=== PATIENT | male | born 1965 | race African-American/Black ===

== ENCOUNTER 2017-09-28 08:22 | Emergency (ER) | payer SELFPAY ==
[2017-09-28 08:51] LABS: #Basophils 0.1 thou/uL (0.0-0.2); #Lymphocytes 1.2 thou/uL (1.20-3.40); #Monocytes 0.7 thou/uL (0.11-0.59); #Neutrophils 5.2 thou/uL (1.40-6.50); %Basophils 1.1 % (0.0-1.0); %Eosinophils 0.4 % (0.0-10.0); %Lymphocytes 16.8 % (21.0-51.0); %Monocytes 9.3 % (0.0-10.0); %Neutrophils 72.5 % (42.0-75.0); Hemoglobin 16.6 g/dL (14.0-18.0); Mean Corpuscular HGB CONC 32.2 g/dL (32.0-36.0); Mean Corpuscular Hemoglobin 26.6 pg (27.0-31.0); Mean Corpuscular Volume 82.6 fl (80.0-94.0); Mean Platelet Volume 8.2 fL (7.4-10.4); Platelet Count 287 thou/uL (130-400); Red Blood Cell (RBC) Count 6.24 mill/uL (4.70-6.10); White Blood Cell (WBC) Count 7.2 thou/uL (4.8-10.8)
[2017-09-28 09:25] LABS: ALT (SGPT) 19 U/L (8-55); AST (SGOT) 22 U/L (5-34); Alkaline Phosphatase 131 U/L (40-150); Anion Gap 12 mmol/L (10-20); BUN (Urea Nitrogen) 14 mg/dL (8.9-20.6); Bilirubin, Total 0.7 mg/dL (0.2-1.2); CK (CPK) 79 U/L (30-200); Calc. Creatinine Clearance 0 mL/min (70-130); Calcium 9.1 mg/dL (7.8-10.44); Carbon Dioxide 23 mmol/L (22-29); Chloride 103 mmol/L (98-107); Estimated GFR-MDRD 58; Globulin 3.2 g/dL (2.4-3.5); Glucose 112 mg/dL (70-105); Potassium 3.9 mmol/L (3.5-5.1); Protein, Total 7.2 g/dL (6.0-8.3); Sodium 134 mmol/L (136-145)
[2017-09-28 09:34] LABS: CKMB 0.5 ng/mL (0-6.6); Troponin I 0.023 ng/mL (< 0.028)
--- NOTE | 2017-09-28 09:36 | RAD ---
PORTABLE AP CHEST: Date: 09/28/17 HISTORY: Chest pain. Cough for 3 days. Back pain. COMPARISON: 01/01/15. FINDINGS: Single lead left subclavian AICD device remains in place. Cardiac silhouette and pulmonary vasculatur e are within normal limits. The lungs are clear. There has been no interval change from the prior exa m. IMPRESSION: No acute cardiopulmonary process. POS: [facility]
[2017-09-28] MEDS ORDERED: Ketorolac Tromethamine 30 MG/ML VIAL ONE (09:46)
[2017-09-28] MEDS ORDERED: cloNIDine 0.1 MG TAB ONE (11:06)
--- NOTE | 2017-11-06 22:13 | EKG ---
Test Reason : Blood Pressure : / mmHG Vent. Rate : 086 BPM Atrial Rate : 086 BPM P-R Int : 152 ms QRS Dur : 088 ms QT Int : 364 ms P-R-T Axes : 073 -29 -42 degrees QTc Int : 435 ms Normal sinus rhythm Possible Left atrial enlargement Abnormal ECG Confirmed by STEPHANIE GASPAR D.O. ([id number]), medical transcription editor TATIANA WARNER ([id number]) on 11/06/2017 10:13:09 PM Referred By: Confirmed By:STEPHANIE GASPAR D.O.
== END 2017-09-28 11:09 | disposition home or self-care (01) ==
LOC: ERS 08:22
DX: R07.89 Other chest pain (principal); M54.5 Low back pain; G89.29 Other chronic pain; F17.210 Nicotine dependence, cigarettes, uncomplicated; F31.9 Bipolar disorder, unspecified; I25.10 Atherosclerotic heart disease of native coronary artery without angina pectoris; I11.0 Hypertensive heart disease with heart failure; I50.9 Heart failure, unspecified; Z79.82 Long term (current) use of aspirin; Z76.0 Encounter for issue of repeat prescription; Z79.899 Other long term (current) drug therapy; Z79.891 Long term (current) use of opiate analgesic
CPT/HCPCS: 36415; 71045; 80053; 82553; 83880; 84484; 85025; 93005; 96372; J1885

== ENCOUNTER 2024-03-24 13:26 | Observation (INO) | payer OTHER ==
[2024-03-24] MEDS ORDERED: Ondansetron ODT 4 MG TAB PO PRN ×2 (15:37)
[2024-03-24] MEDS ORDERED: Acetaminophen 325 MG TAB PO PRN (15:37)
[2024-03-24] MEDS ORDERED: Lorazepam 1 MG TAB PO PRN (15:37)
[2024-03-24] MEDS ORDERED: Lorazepam 2 MG/ML VIAL IM PRN (15:37)
[2024-03-24] MEDS ORDERED: Nitroglycerin 0.4 MG TAB (25 Tab Bottle) SL PRN (15:43)
[2024-03-24] MEDS ORDERED: Electrolyte Replacement Protocol FS SCH (15:45)
[2024-03-24] MEDS ORDERED: Lorazepam 1 MG TAB PO SCH (15:45)
[2024-03-24 16:31] LABS: Troponin I 0.159 ng/mL (< 0.028)
[2024-03-24] MEDS: Folic Acid 1 MG TAB PO SCH (18:44)
[2024-03-24] MEDS: Multivit, Therapeutic 1 TAB PO SCH (18:45)
[2024-03-24] MEDS: Thiamine HCl 200 MG/2 ML VIAL SLOW IVP SCH (18:45)
[2024-03-24] MEDS: Lactated Ringer's 1,000 ML IV SCH (20:21)
[2024-03-24 20:58] LABS: Troponin I 0.155 ng/mL (< 0.028)
[2024-03-25 04:00] LABS: #Basophils 0.04 10x3/uL (0.0-0.2); %Basophils 0.5 % (0.0-1.0); %Eosinophils 1.3 % (0.0-10.0); %Lymphocytes 30.1 % (21.0-51.0); %Monocytes 9.9 % (0.0-10.0); Hematocrit 39.6 % (42.0-52.0); Hemoglobin 12.7 g/dL (14.0-18.0); Mean Corpuscular HGB CONC 32.1 g/dL (32.0-36.0); Mean Corpuscular Hemoglobin 25.3 pg (27.0-31.0); Platelet Count 351 10x3/uL (130-400); RBC Distribution Width 17.2 % (11.5-14.5); Red Blood Cell (RBC) Count 5.01 mill/uL (4.70-6.10)
[2024-03-25 04:13] LABS: ALT (SGPT) 8 U/L (8-55); AST (SGOT) 15 U/L (5-34); Albumin 3.1 g/dL (3.5-5.0); Alkaline Phosphatase 110 U/L (40-110); Anion Gap 14 mmol/L (10-20); BUN (Urea Nitrogen) 9 mg/dL (8.4-25.7); Bilirubin, Total 0.5 mg/dL (0.2-1.2); Calc. Creatinine Clearance 67 mL/min (70-130); Calcium 8.9 mg/dL (7.8-10.44); Carbon Dioxide 24 mmol/L (22-29); Chloride 106 mmol/L (98-107); Estimated GFR 62; Globulin 3.1 g/dL (2.4-3.5); Glucose 95 mg/dL (70-105); Phosphorus 2.8 mg/dL (2.3-4.7); Potassium 3.6 mmol/L (3.5-5.1); Protein, Total 6.2 g/dL (6.0-8.3); Sodium 140 mmol/L (136-145)
[2024-03-25] MEDS ORDERED: hydrALAZINE 20 MG/ML VIAL SLOW IVP PRN (05:32)
[2024-03-25] MEDS: hydrALAZINE 20 MG/ML VIAL SLOW IVP PRN (06:03)
[2024-03-25] MEDS ORDERED: Labetalol HCl 100 MG/20 ML VIAL SLOW IVP PRN (06:50)
[2024-03-25] MEDS: Losartan 25 MG TAB PO SCH ×2 (08:39→13:00)
[2024-03-25] MEDS: Folic Acid 1 MG TAB PO SCH (08:39)
[2024-03-25] MEDS: Magnesium 2 GM/50 ML(in water) 2 GM in Premix 1 BAG IVPB SCH (08:40)
[2024-03-25] MEDS: Multivit, Therapeutic 1 TAB PO SCH (08:40)
[2024-03-25] MEDS: Carvedilol 6.25 MG TAB PO SCH (15:31)
[2024-03-25] MEDS ORDERED: Lorazepam 1 MG TAB PO PRN (15:38)
[2024-03-25] MEDS: Amlodipine 10 MG TAB PO SCH (18:32)
[2024-03-25] MEDS: Terazosin HCl 1 MG CAP PO SCH (21:58)
[2024-03-26 04:59] LABS: #Basophils 0.04 10x3/uL (0.0-0.2); %Basophils 0.4 % (0.0-1.0); %Eosinophils 1.4 % (0.0-10.0); %Lymphocytes 22.7 % (21.0-51.0); %Monocytes 8.7 % (0.0-10.0); %Neutrophils 66.5 % (42.0-75.0); Hematocrit 40.5 % (42.0-52.0); Hemoglobin 13.3 g/dL (14.0-18.0); Mean Corpuscular HGB CONC 32.8 g/dL (32.0-36.0); Mean Corpuscular Hemoglobin 25.4 pg (27.0-31.0); Mean Corpuscular Volume 77.4 fL (78.0-98.0); Mean Platelet Volume 9.3 fL (7.4-10.4); Platelet Count 332 10x3/uL (130-400); Red Blood Cell (RBC) Count 5.23 mill/uL (4.70-6.10)
[2024-03-26 05:18] LABS: ALT (SGPT) 8 U/L (8-55); AST (SGOT) 14 U/L (5-34); Albumin 2.9 g/dL (3.5-5.0); Alkaline Phosphatase 98 U/L (40-110); Anion Gap 12 mmol/L (10-20); BUN (Urea Nitrogen) 12 mg/dL (8.4-25.7); Bilirubin, Total 0.5 mg/dL (0.2-1.2); Calc. Creatinine Clearance 81 mL/min (70-130); Calcium 8.7 mg/dL (7.8-10.44); Carbon Dioxide 21 mmol/L (22-29); Chloride 106 mmol/L (98-107); Estimated GFR 79; Globulin 3.1 g/dL (2.4-3.5); Glucose 112 mg/dL (70-105); Potassium 3.6 mmol/L (3.5-5.1); Sodium 135 mmol/L (136-145)
[2024-03-26 08:16] VITALS: TEMP 98.8
[2024-03-26] MEDS: Carvedilol 6.25 MG TAB PO SCH (08:30)
[2024-03-26] MEDS ORDERED: Amlodipine 10 MG TAB PO SCH (09:00)
[2024-03-26] MEDS: Digoxin 0.25 MG TAB PO SCH (09:01)
[2024-03-26] MEDS: Spironolactone 25 MG TAB PO SCH (09:02)
[2024-03-26 11:18] VITALS: BP 136/81
[2024-03-26] MEDS ORDERED: Lorazepam 1 MG TAB PO PRN (15:38)
[2024-03-26] MEDS ORDERED: Lorazepam 0.5 MG TAB PO SCH (16:00)
[2024-03-27] MEDS ORDERED: Lorazepam 0.5 MG TAB PO PRN (15:38)
[2024-03-27] MEDS ORDERED: Thiamine 100 MG TAB PO SCH (16:00)
== END 2024-03-26 13:35 | disposition home or self-care (01) ==
LOC: 2SW 15:00
PROVIDERS: ADMIT Family Medicine; ATTEND Family Medicine
DX: R06.02 Shortness of breath (principal); F15.10 Other stimulant abuse, uncomplicated; F14.10 Cocaine abuse, uncomplicated; F10.10 Alcohol abuse, uncomplicated; N17.9 Acute kidney failure, unspecified; I42.9 Cardiomyopathy, unspecified; I11.0 Hypertensive heart disease with heart failure; I47.10 Supraventricular tachycardia, unspecified; I50.9 Heart failure, unspecified; E78.5 Hyperlipidemia, unspecified; I25.10 Atherosclerotic heart disease of native coronary artery without angina pectoris; F31.9 Bipolar disorder, unspecified; Z98.890 Other specified postprocedural states; F17.200 Nicotine dependence, unspecified, uncomplicated; Z79.899 Other long term (current) drug therapy; Z95.810 Presence of automatic (implantable) cardiac defibrillator
CPT/HCPCS: 36415; 80053; 83735; 84100; 85025; 96374; 96375; G0378; J0360; J3411; J3475; J7120

== ENCOUNTER 2024-04-15 08:52 | Inpatient (IN) | payer OTHER ==
[2024-04-15] MEDS ORDERED: Propofol 1,000 MG/100 ML VIAL IV ONE (08:57)
[2024-04-15] MEDS ORDERED: fentaNYL 50 mcg/mL 1 mL Vial ONE ×2 (08:57→09:15)
[2024-04-15 09:13] LABS: Actual Bicarbonate (HCO3a) 23.7 mEq/L (22-28); Analyzer IN Cardio ER; Base Excess (BEa) -4.4 mEq/L (-2.0 to +3.0); CO2 Tension 56.6 mmHg (35.0-45.0); Calcium, Ionized (arterial) 1.11 mmol/L (1.12-1.30); Carboxyhemoglobin (COHb) 2.5 gm% (0.0-3.0); Hematocrit-ABG 39 % (42.0-52.0); Hemoglobin (Hb) 13.4 g/dL (14.0-18.0); Potassium - ABG Lab 4.04 mmol/L (3.70-5.30)
[2024-04-15] MEDS ORDERED: Fentanyl CADD 100 ML IV SCH (09:15)
[2024-04-15 09:19] LABS: Puncture Site Right Radial artery
[2024-04-15 10:17] LABS: INR-International Normal Ratio 1.1; Prothrombin Time 14.7 sec (12.0-14.7)
[2024-04-15 10:18] LABS: PTT 25.5 sec (22.9-36.1)
[2024-04-15 10:47] LABS: Magnesium 2.2 mg/dL (1.6-2.6)
[2024-04-15] MEDS ORDERED: Heparin 5,000 UNITS/ML VIAL ONE (11:42)
[2024-04-15] MEDS ORDERED: Heparin 25,000 units/D5W 500 ML ONE (11:42)
[2024-04-15] MEDS ORDERED: Insulin Lispro 100 UNIT/ML 10 ML VIAL SC PRN (11:55)
[2024-04-15] MEDS ORDERED: Electrolyte Replacement Protocol 1 EACH IVPB PRN (11:55)
[2024-04-15] MEDS ORDERED: Ipratropium/Albuterol 3 ML NEB NEB PRN (11:55)
[2024-04-15] MEDS ORDERED: Ondansetron PF 4 MG/2 ML Vial IVP PRN (11:55)
[2024-04-15] MEDS ORDERED: Ventilator Sedation Protocol 1 EACH FS PRN (12:00)
[2024-04-15 13:00] LABS: Troponin I 0.343 ng/mL (< 0.028)
[2024-04-15] MEDS: Propofol 1,000 MG/100 ML VIAL IV PRN (13:00)
[2024-04-15 13:05] LABS: Digoxin Less than 0.19 ng/mL (0.8-2.0)
[2024-04-15 13:29] VITALS: BMI 24.3
[2024-04-15] MEDS ORDERED: Electrolyte Replacement Protocol FS PRN (13:30)
[2024-04-15] MEDS ORDERED: Propofol BOLUS 1,000 MG/100 ML VIAL IV PRN (13:30)
[2024-04-15] MEDS ORDERED: Fentanyl BOLUS 250 ML IVPB PRN (13:30)
[2024-04-15 13:37] LABS: Base Excess (BEa) 0.5 mEq/L (-2.0 to +3.0); CO2 Tension 45.4 mmHg (35.0-45.0); Calcium, Ionized (arterial) 1.08 mmol/L (1.12-1.30); Carboxyhemoglobin (COHb) 1.2 gm% (0.0-3.0); Hematocrit-ABG 39 % (42.0-52.0); Hemoglobin (Hb) 13.3 g/dL (14.0-18.0); O2 Tension (PaO2), arterial 73.9 mmHg (80.0-100.0); Potassium - ABG Lab 3.73 mmol/L (3.70-5.30); pH, Arterial 7.376 (7.35-7.45)
[2024-04-15 13:44] LABS: Puncture Site Right Radial artery
[2024-04-15] MEDS: Fentanyl CADD 100 ML IV SCH (20:26)
[2024-04-15] MEDS ORDERED: Enoxaparin 40 MG (0.4 mL) SYRINGE SC SCH (21:00)
[2024-04-16 05:40] LABS: #Basophils 0.03 10x3/uL (0.0-0.2); %Basophils 0.3 % (0.0-1.0); %Eosinophils 1.6 % (0.0-10.0); %Monocytes 11.5 % (0.0-10.0); %Neutrophils 63.4 % (42.0-75.0); Hematocrit 36.1 % (42.0-52.0); Hemoglobin 11.3 g/dL (14.0-18.0); Mean Corpuscular HGB CONC 31.3 g/dL (32.0-36.0); Mean Corpuscular Hemoglobin 25.7 pg (27.0-31.0); Mean Corpuscular Volume 82.2 fL (78.0-98.0); Mean Platelet Volume 10.8 fL (7.4-10.4); Platelet Count 268 10x3/uL (130-400); RBC Distribution Width 17.2 % (11.5-14.5); Red Blood Cell (RBC) Count 4.39 mill/uL (4.70-6.10)
[2024-04-16 06:57] LABS: ALT (SGPT) 31 U/L (8-55); AST (SGOT) 38 U/L (5-34); Albumin 2.8 g/dL (3.5-5.0); Alkaline Phosphatase 89 U/L (40-110); Anion Gap 19 mmol/L (10-20); BUN (Urea Nitrogen) 21 mg/dL (8.4-25.7); Bilirubin, Total 0.3 mg/dL (0.2-1.2); Calc. Creatinine Clearance 55 mL/min (70-130); Carbon Dioxide 20 mmol/L (22-29); Chloride 105 mmol/L (98-107); Estimated GFR 50; Globulin 3.2 g/dL (2.4-3.5); Glucose 70 mg/dL (70-105); Potassium 4.7 mmol/L (3.5-5.1); Sodium 139 mmol/L (136-145)
[2024-04-16 07:25] LABS: Base Excess (BEa) 0.6 mEq/L (-2.0 to +3.0); CO2 Tension 39.2 mmHg (35.0-45.0); Calcium, Ionized (arterial) 1.12 mmol/L (1.12-1.30); Carboxyhemoglobin (COHb) 0.7 gm% (0.0-3.0); Hematocrit-ABG 35 % (42.0-52.0); Hemoglobin (Hb) 11.8 g/dL (14.0-18.0); Potassium - ABG Lab 3.31 mmol/L (3.70-5.30); pH, Arterial 7.422 (7.35-7.45)
[2024-04-16 08:13] LABS: Puncture Site Right Radial artery
[2024-04-16] MEDS: Enoxaparin 40 MG (0.4 mL) SYRINGE SC SCH (08:20)
[2024-04-16] MEDS: Famotidine/PF 20 mg/2ml Vial SLOW IVP SCH (08:20)
[2024-04-16] MEDS: FLU (Fluarix Triv) TS24-25(6MOS UP)/PF 45 MCG/0.5 ML Syringe IM ONE (08:21)
[2024-04-16] MEDS: Dextrose 50% Abboject 50 ML SYRINGE SLOW IVP PRN (10:06)
[2024-04-16] MEDS ORDERED: Glucagon 1 MG/ML KIT IM PRN (10:52)
[2024-04-16] MEDS ORDERED: Dextrose 5% in Water 1,000 ML IV PRN (10:52)
[2024-04-16] MEDS: Dextrose 50% Abboject 50 ML SYRINGE ONE (11:00)
[2024-04-16 12:11] LABS: Troponin I 0.378 ng/mL (< 0.028)
[2024-04-16] MEDS: Haloperidol Lactate 5 MG/ML VIAL IM SCH ×2 (12:13→12:15)
[2024-04-16] MEDS: Lorazepam 2 MG/ML VIAL SLOW IVP SCH (12:14)
[2024-04-16] MEDS: Dextrose 5 %-0.45 % NaCl 1,000 ML IV SCH (15:04)
[2024-04-16] MEDS: Acetaminophen 650 MG Suppository PR PRN (19:36)
[2024-04-17 05:05] LABS: #Basophils Less than 0.03 10x3/uL (0.0-0.2); %Basophils 0.2 % (0.0-1.0); %Lymphocytes 12.7 % (21.0-51.0); %Monocytes 11.1 % (0.0-10.0); %Neutrophils 74.6 % (42.0-75.0); Hematocrit 35.3 % (42.0-52.0); Hemoglobin 11.1 g/dL (14.0-18.0); Mean Corpuscular HGB CONC 31.4 g/dL (32.0-36.0); Mean Corpuscular Hemoglobin 25.9 pg (27.0-31.0); Mean Corpuscular Volume 82.3 fL (78.0-98.0); Platelet Count 279 10x3/uL (130-400); RBC Distribution Width 17.3 % (11.5-14.5); Red Blood Cell (RBC) Count 4.29 mill/uL (4.70-6.10)
[2024-04-17 05:25] LABS: ALT (SGPT) 26 U/L (8-55); AST (SGOT) 37 U/L (5-34); Albumin 2.5 g/dL (3.5-5.0); Alkaline Phosphatase 88 U/L (40-110); Anion Gap 13 mmol/L (10-20); BUN (Urea Nitrogen) 10 mg/dL (8.4-25.7); Bilirubin, Total 0.3 mg/dL (0.2-1.2); Calc. Creatinine Clearance 64 mL/min (70-130); Calcium 8.1 mg/dL (7.8-10.44); Carbon Dioxide 26 mmol/L (22-29); Chloride 104 mmol/L (98-107); Estimated GFR 63; Globulin 3.2 g/dL (2.4-3.5); Glucose 93 mg/dL (70-105); Potassium 3.3 mmol/L (3.5-5.1); Protein, Total 5.7 g/dL (6.0-8.3); Sodium 140 mmol/L (136-145)
[2024-04-17] MEDS: Famotidine/PF 20 mg/2ml Vial SLOW IVP SCH (08:05)
[2024-04-17] MEDS: Potassium Chloride 20 MEQ in Premix 1 BAG IVPB SCH (08:58)
[2024-04-17] MEDS: Dexmedetomidine In 0.9 % NaCl 100 ML IV SCH (09:40)
[2024-04-17] MEDS: cefTRIAXone\\ROCEPHIN 2 GM in Sodium Chloride 0.9% 100 ML IVPB SCH (15:51)
[2024-04-17] MEDS: Haloperidol Lactate 5 MG/ML VIAL IM SCH (15:52)
[2024-04-17] MEDS: Lorazepam 2 MG/ML VIAL SLOW IVP PRN (20:58)
[2024-04-17] MEDS: Morphine 2 MG/ML VIAL SLOW IVP PRN (21:45)
[2024-04-18 05:37] LABS: #Basophils Less than 0.03 10x3/uL (0.0-0.2); %Basophils 0.1 % (0.0-1.0); %Eosinophils 0.2 % (0.0-10.0); %Lymphocytes 8.5 % (21.0-51.0); %Monocytes 11.6 % (0.0-10.0); %Neutrophils 79.2 % (42.0-75.0); Hematocrit 33.7 % (42.0-52.0); Hemoglobin 10.7 g/dL (14.0-18.0); Mean Corpuscular HGB CONC 31.8 g/dL (32.0-36.0); Mean Corpuscular Hemoglobin 25.5 pg (27.0-31.0); Mean Corpuscular Volume 80.2 fL (78.0-98.0); Mean Platelet Volume 10.7 fL (7.4-10.4); Platelet Count 249 10x3/uL (130-400); RBC Distribution Width 16.7 % (11.5-14.5)
[2024-04-18 06:10] LABS: ALT (SGPT) 20 U/L (8-55); AST (SGOT) 37 U/L (5-34); Albumin 2.2 g/dL (3.5-5.0); Alkaline Phosphatase 76 U/L (40-110); Anion Gap 14 mmol/L (10-20); BUN (Urea Nitrogen) 21 mg/dL (8.4-25.7); Bilirubin, Total 0.5 mg/dL (0.2-1.2); Calc. Creatinine Clearance 50 mL/min (70-130); Calcium 8.1 mg/dL (7.8-10.44); Carbon Dioxide 21 mmol/L (22-29); Chloride 104 mmol/L (98-107); Estimated GFR 46; Globulin 3.5 g/dL (2.4-3.5); Glucose 144 mg/dL (70-105); Potassium 4.6 mmol/L (3.5-5.1); Protein, Total 5.7 g/dL (6.0-8.3); Sodium 134 mmol/L (136-145)
[2024-04-18] MEDS: Sodium Chloride 0.9% 1,000 ML IV SCH ×2 (06:49→06:52)
[2024-04-18 06:51] LABS: Actual Bicarbonate (HCO3a) 21.6 mEq/L (22-28); Base Excess (BEa) -1.6 mEq/L (-2.0 to +3.0); CO2 Tension 31.7 mmHg (35.0-45.0); Calcium, Ionized (arterial) 1.08 mmol/L (1.12-1.30); Carboxyhemoglobin (COHb) 0.6 gm% (0.0-3.0); Hematocrit-ABG 34 % (42.0-52.0); Hemoglobin (Hb) 11.7 g/dL (14.0-18.0); O2 Tension (PaO2), arterial 72.2 mmHg (80.0-100.0); Potassium - ABG Lab 4.85 mmol/L (3.70-5.30); pH, Arterial 7.451 (7.35-7.45)
[2024-04-18 06:55] LABS: ALV-art Gradient 173.375 mmHg (0-20); Puncture Site Right Brachial art
[2024-04-18] MEDS: NOREPINEPHRINE 8 MG/250 ML-D5W 250 ML ONE (06:55)
[2024-04-18] MEDS: Lactated Ringer's 1,000 ML IV SCH (10:15)
[2024-04-18] MEDS: Haloperidol Lactate 5 MG/ML VIAL IM SCH ×2 (18:30→20:30)
[2024-04-18] MEDS: Haloperidol Lactate 5 MG/ML VIAL ONE (18:46)
[2024-04-19 05:32] LABS: #Basophils 0.03 10x3/uL (0.0-0.2); %Basophils 0.2 % (0.0-1.0); %Eosinophils 0.3 % (0.0-10.0); %Lymphocytes 10.5 % (21.0-51.0); %Monocytes 9.9 % (0.0-10.0); %Neutrophils 78.5 % (42.0-75.0); Hematocrit 30.7 % (42.0-52.0); Hemoglobin 9.9 g/dL (14.0-18.0); Mean Corpuscular HGB CONC 32.2 g/dL (32.0-36.0); Mean Corpuscular Hemoglobin 25.4 pg (27.0-31.0); Mean Corpuscular Volume 78.7 fL (78.0-98.0); Mean Platelet Volume 10.6 fL (7.4-10.4); Platelet Count 249 10x3/uL (130-400); RBC Distribution Width 16.6 % (11.5-14.5)
[2024-04-19 05:45] LABS: ALT (SGPT) 27 U/L (8-55); AST (SGOT) 41 U/L (5-34); Albumin 1.9 g/dL (3.5-5.0); Alkaline Phosphatase 108 U/L (40-110); Anion Gap 10 mmol/L (10-20); BUN (Urea Nitrogen) 32 mg/dL (8.4-25.7); Bilirubin, Total 0.4 mg/dL (0.2-1.2); Calc. Creatinine Clearance 54 mL/min (70-130); Carbon Dioxide 22 mmol/L (22-29); Chloride 108 mmol/L (98-107); Estimated GFR 50; Globulin 3.6 g/dL (2.4-3.5); Glucose 153 mg/dL (70-105); Potassium 4.3 mmol/L (3.5-5.1); Protein, Total 5.5 g/dL (6.0-8.3); Sodium 136 mmol/L (136-145)
[2024-04-19 06:37] LABS: Actual Bicarbonate (HCO3a) 21.9 mEq/L (22-28); Base Excess (BEa) -0.9 mEq/L (-2.0 to +3.0); CO2 Tension 31.3 mmHg (35.0-45.0); Calcium, Ionized (arterial) 1.16 mmol/L (1.12-1.30); Carboxyhemoglobin (COHb) 0.9 gm% (0.0-3.0); Hematocrit-ABG 41 % (42.0-52.0); Hemoglobin (Hb) 13.8 g/dL (14.0-18.0); O2 Tension (PaO2), arterial 117.7 mmHg (80.0-100.0); Potassium - ABG Lab 4.24 mmol/L (3.70-5.30); pH, Arterial 7.463 (7.35-7.45)
[2024-04-19 06:44] LABS: ALV-art Gradient 128.375 mmHg (0-20); Puncture Site Left Radial artery
[2024-04-19] MEDS: Haloperidol Lactate 5 MG/ML VIAL IM SCH (16:45)
[2024-04-20 04:33] LABS: #Basophils Less than 0.03 10x3/uL (0.0-0.2); %Basophils 0.2 % (0.0-1.0); %Eosinophils 1.1 % (0.0-10.0); %Lymphocytes 12.8 % (21.0-51.0); %Monocytes 10.2 % (0.0-10.0); %Neutrophils 75.3 % (42.0-75.0); Hemoglobin 9.5 g/dL (14.0-18.0); Mean Corpuscular HGB CONC 31.7 g/dL (32.0-36.0); Mean Corpuscular Volume 78.9 fL (78.0-98.0); Mean Platelet Volume 10.8 fL (7.4-10.4); Platelet Count 254 10x3/uL (130-400); RBC Distribution Width 16.6 % (11.5-14.5)
[2024-04-20 05:14] LABS: ALT (SGPT) 27 U/L (8-55); AST (SGOT) 34 U/L (5-34); Albumin 1.8 g/dL (3.5-5.0); Alkaline Phosphatase 92 U/L (40-110); Anion Gap 11 mmol/L (10-20); BUN (Urea Nitrogen) 29 mg/dL (8.4-25.7); Bilirubin, Total 0.2 mg/dL (0.2-1.2); Calc. Creatinine Clearance 67 mL/min (70-130); Calcium 8.3 mg/dL (7.8-10.44); Carbon Dioxide 22 mmol/L (22-29); Chloride 111 mmol/L (98-107); Estimated GFR 60; Globulin 3.6 g/dL (2.4-3.5); Glucose 145 mg/dL (70-105); Potassium 4.1 mmol/L (3.5-5.1); Protein, Total 5.4 g/dL (6.0-8.3); Sodium 140 mmol/L (136-145)
[2024-04-20] MEDS: Scopolamine 1 mg/72 hour Patch TD SCH (11:17)
[2024-04-20] MEDS: Glycopyrrolate 0.4 MG/ 2 ML VIAL SLOW IVP SCH (11:39)
[2024-04-20] MEDS: Glycopyrrolate 0.2 MG/ML 5 ML SYRINGE SLOW IVP SCH (11:57)
[2024-04-20] MEDS: Furosemide 40 MG (4 mL) VIAL SLOW IVP SCH (13:26)
[2024-04-20] MEDS: Labetalol HCl 100 MG/20 ML VIAL SLOW IVP PRN (15:07)
[2024-04-20] MEDS: hydrALAZINE 20 MG/ML VIAL SLOW IVP PRN (16:12)
[2024-04-20] MEDS: Carvedilol 6.25 MG TAB PO SCH ×2 (16:18→21:12)
[2024-04-20] MEDS: NIFEdipine XL 60 MG ER.TAB PO SCH (17:13)
[2024-04-20] MEDS: Acetaminophen 325 MG TAB PO PRN (17:13)
[2024-04-20] MEDS: niCARdipine 25 MG in Sodium Chloride 0.9% 250 ML 250 ML IVPB SCH (17:14)
[2024-04-20] MEDS: niCARdipine 50 MG, Admixture Fee 1 EACH in Sodium Chloride 0.9% 250 ML 230 ML IV SCH (19:21)
[2024-04-20] MEDS: Losartan 25 MG TAB PO SCH (21:12)
[2024-04-20] MEDS: Lorazepam 2 MG/ML VIAL SLOW IVP PRN (22:24)
[2024-04-21 03:57] LABS: #Basophils 0.03 10x3/uL (0.0-0.2); %Basophils 0.2 % (0.0-1.0); %Eosinophils 0.8 % (0.0-10.0); %Lymphocytes 10.7 % (21.0-51.0); %Monocytes 11.6 % (0.0-10.0); %Neutrophils 76.4 % (42.0-75.0); Hematocrit 32.7 % (42.0-52.0); Hemoglobin 10.7 g/dL (14.0-18.0); Mean Corpuscular HGB CONC 32.7 g/dL (32.0-36.0); Mean Corpuscular Hemoglobin 25.1 pg (27.0-31.0); Mean Corpuscular Volume 76.8 fL (78.0-98.0); Mean Platelet Volume 10.3 fL (7.4-10.4); Platelet Count 345 10x3/uL (130-400); RBC Distribution Width 16.5 % (11.5-14.5); Red Blood Cell (RBC) Count 4.26 mill/uL (4.70-6.10)
[2024-04-21 04:22] LABS: ALT (SGPT) 37 U/L (8-55); AST (SGOT) 44 U/L (5-34); Albumin 2.1 g/dL (3.5-5.0); Alkaline Phosphatase 87 U/L (40-110); Anion Gap 13 mmol/L (10-20); BUN (Urea Nitrogen) 21 mg/dL (8.4-25.7); Bilirubin, Total 0.5 mg/dL (0.2-1.2); Calc. Creatinine Clearance 75 mL/min (70-130); Calcium 8.4 mg/dL (7.8-10.44); Carbon Dioxide 23 mmol/L (22-29); Chloride 105 mmol/L (98-107); Estimated GFR 68; Globulin 4.1 g/dL (2.4-3.5); Glucose 116 mg/dL (70-105); Potassium 3.4 mmol/L (3.5-5.1); Protein, Total 6.2 g/dL (6.0-8.3); Sodium 138 mmol/L (136-145)
[2024-04-21] MEDS: Potassium Chloride 20 MEQ TAB PO SCH (08:13)
[2024-04-21] MEDS: NIFEdipine XL 60 MG ER.TAB PO SCH (09:28)
[2024-04-21] MEDS: Cyclobenzaprine 10 MG TAB PO PRN (14:36)
[2024-04-21 15:19] VITALS: BMI 24.0
[2024-04-21] MEDS: Ketorolac Tromethamine 30 MG (1 mL) VIAL IVP PRN (16:46)
[2024-04-21] MEDS: Lidocaine 4% Patch TD SCH (18:10)
[2024-04-21] MEDS: Spironolactone 25 MG TAB PO SCH (21:39)
[2024-04-22] MEDS: guaiFENesin 200 MG TAB PO PRN (01:24)
[2024-04-22] MEDS: NIFEdipine XL 60 MG ER.TAB PO SCH (03:15)
[2024-04-22 04:28] LABS: #Basophils 0.03 10x3/uL (0.0-0.2); %Basophils 0.2 % (0.0-1.0); %Eosinophils 0.5 % (0.0-10.0); %Lymphocytes 10.9 % (21.0-51.0); %Monocytes 12.6 % (0.0-10.0); %Neutrophils 75.3 % (42.0-75.0); Hematocrit 36.8 % (42.0-52.0); Hemoglobin 11.9 g/dL (14.0-18.0); Mean Corpuscular HGB CONC 32.3 g/dL (32.0-36.0); Mean Corpuscular Hemoglobin 25.4 pg (27.0-31.0); Mean Corpuscular Volume 78.5 fL (78.0-98.0); Mean Platelet Volume 10.1 fL (7.4-10.4); Platelet Count 440 10x3/uL (130-400); RBC Distribution Width 16.5 % (11.5-14.5); Red Blood Cell (RBC) Count 4.69 mill/uL (4.70-6.10)
[2024-04-22 04:50] LABS: ALT (SGPT) 53 U/L (8-55); AST (SGOT) 52 U/L (5-34); Albumin 2.4 g/dL (3.5-5.0); Alkaline Phosphatase 92 U/L (40-110); Anion Gap 13 mmol/L (10-20); BUN (Urea Nitrogen) 18 mg/dL (8.4-25.7); Bilirubin, Total 0.6 mg/dL (0.2-1.2); Calc. Creatinine Clearance 83 mL/min (70-130); Calcium 8.8 mg/dL (7.8-10.44); Carbon Dioxide 24 mmol/L (22-29); Chloride 105 mmol/L (98-107); Estimated GFR 81; Globulin 4.3 g/dL (2.4-3.5); Glucose 143 mg/dL (70-105); Potassium 3.4 mmol/L (3.5-5.1); Protein, Total 6.7 g/dL (6.0-8.3); Sodium 139 mmol/L (136-145)
[2024-04-22] MEDS: hydrALAZINE 20 MG/ML VIAL SLOW IVP SCH (05:03)
[2024-04-22] MEDS: QUEtiapine 25 MG TAB PO SCH (05:04)
[2024-04-22 09:16] VITALS: BP 148/91; TEMP 99.9
[2024-04-22] MEDS: Carvedilol 25 MG TAB PO SCH (10:32)
[2024-04-22] MEDS: Empagliflozin 10 MG TAB PO SCH (10:32)
[2024-04-22] MEDS: Lidocaine 4% Patch TD SCH (10:32)
[2024-04-22] MEDS: Potassium Chloride 20 MEQ TAB PO SCH (10:35)
[2024-04-22] MEDS ORDERED: Transdermal Patch Removal TOP SCH (21:00)
[2024-04-22] MEDS ORDERED: NIFEdipine XL 60 MG ER.TAB PO SCH (21:00)
== END 2024-04-22 10:48 | disposition left against medical advice (07) | DRG 207 ==
LOC: ERS 08:52 → CCU 13:08 → MSONC 04-21 14:13
PROVIDERS: ADMIT Student in an Organized Health Care Education/Training Program; ATTEND Student in an Organized Health Care Education/Training Program
PROC: 0BH17EZ Insertion of Endotracheal Airway into Trachea, Via Natural or Artificial Opening (ICD-10-PCS; principal; 2024-04-15)
PROC: 05HF33Z Insertion of Infusion Device into Left Cephalic Vein, Percutaneous Approach (ICD-10-PCS; 2024-04-15)
PROC: 5A1955Z Respiratory Ventilation, Greater than 96 Consecutive Hours (ICD-10-PCS; 2024-04-15)
PROC: 4A133R1 Monitoring of Arterial Saturation, Peripheral, Percutaneous Approach (ICD-10-PCS; 2024-04-15)
PROC: 3E02340 Introduction of Influenza Vaccine into Muscle, Percutaneous Approach (ICD-10-PCS; 2024-04-16)
PROC: 3E033XZ Introduction of Vasopressor into Peripheral Vein, Percutaneous Approach (ICD-10-PCS; 2024-04-18)
DX: J96.01 Acute respiratory failure with hypoxia (principal); I50.23 Acute on chronic systolic (congestive) heart failure; I21.A1 Myocardial infarction type 2; J18.9 Pneumonia, unspecified organism; G93.41 Metabolic encephalopathy; I42.7 Cardiomyopathy due to drug and external agent; N17.9 Acute kidney failure, unspecified; E87.4 Mixed disorder of acid-base balance; I16.1 Hypertensive emergency; I11.0 Hypertensive heart disease with heart failure; F31.9 Bipolar disorder, unspecified; E78.5 Hyperlipidemia, unspecified; G89.29 Other chronic pain; M54.59 Other low back pain; F17.210 Nicotine dependence, cigarettes, uncomplicated; I25.10 Atherosclerotic heart disease of native coronary artery without angina pectoris; Z71.51 Drug abuse counseling and surveillance of drug abuser; Z91.148 Patient's other noncompliance with medication regimen for other reason; Z95.810 Presence of automatic (implantable) cardiac defibrillator; Z79.82 Long term (current) use of aspirin; Z79.899 Other long term (current) drug therapy; F14.10 Cocaine abuse, uncomplicated; F10.10 Alcohol abuse, uncomplicated; F13.10 Sedative, hypnotic or anxiolytic abuse, uncomplicated; J96.02 Acute respiratory failure with hypercapnia
CPT/HCPCS: 31500; 36415; 36416; 36600; 51702; 70450; 71045; 74018; 80053; 80162; 82805; 83735; 84443; 84484; 85025; 85610; 85730; 93005; 93306; 94002; 94003; 94660; 96365; 96366; 96368; 96375; 99292; J0360; J0696; J1630; J1644; J1650; J1885; J1940; J2060; J2272; J2704; J3010; J3480; J3490; J7030; J7042; J7050; J7120; J7999

== ENCOUNTER 2024-08-02 11:47 | Inpatient (IN) | payer OTHER ==
[~2024-08-02 11:47] MED LIST: Iopamidol-370 76% 500 ML MDV (1 ML CHARGE) ONE
[2024-08-02] MEDS ORDERED: Naloxone HCl 0.4 mg/ml Vial ONE (13:03)
[2024-08-02 14:02] LABS: Acetaminophen Less than 10 mcg/mL (Less than 10); Alcohol Less than 10.0 mg/dL (Less than 10); Salicylate Less than 8.0 mg/dL (Less than 8.0)
[2024-08-02] MEDS ORDERED: Dextrose 5% in Water 1,000 ML IV PRN ×2 (14:18→19:49)
[2024-08-02] MEDS ORDERED: Dextrose 50% Abboject 50 ML SYRINGE SLOW IVP PRN ×2 (14:18→19:49)
[2024-08-02] MEDS ORDERED: Glucagon 1 MG/ML KIT IM PRN ×2 (14:18→19:49)
[2024-08-02] MEDS ORDERED: Acetaminophen 325 MG TAB PO PRN (14:18)
[2024-08-02] MEDS ORDERED: Acetaminophen 650 MG Suppository PR PRN (14:18)
[2024-08-02] MEDS ORDERED: Ondansetron ODT 4 MG TAB PO PRN (14:18)
[2024-08-02] MEDS ORDERED: Ondansetron PF 4 MG/2 ML Vial IVP PRN (14:18)
[2024-08-02] MEDS: Labetalol HCl 100 MG/20 ML VIAL SLOW IVP PRN (16:40)
[2024-08-02] MEDS: niCARdipine 25 MG in Sodium Chloride 0.9% 250 ML 250 ML IVPB SCH (18:48)
[2024-08-02] MEDS ORDERED: Insulin Lispro 100 UNIT/ML 10 ML VIAL SC PRN (19:49)
[2024-08-02 20:06] LABS: #Basophils Less than 0.03 10x3/uL (0.0-0.2); %Basophils 0.2 % (0.0-1.0); %Eosinophils 0.7 % (0.0-10.0); %Lymphocytes 15.3 % (21.0-51.0); %Monocytes 8.7 % (0.0-10.0); %Neutrophils 74.7 % (42.0-75.0); Hematocrit 39.4 % (42.0-52.0); Hemoglobin 12.6 g/dL (14.0-18.0); Mean Corpuscular Hemoglobin 24.5 pg (27.0-31.0); Mean Corpuscular Volume 76.7 fL (78.0-98.0); Mean Platelet Volume 9.1 fL (7.4-10.4); Platelet Count 290 10x3/uL (130-400); RBC Distribution Width 17.2 % (11.5-14.5); Red Blood Cell (RBC) Count 5.14 mill/uL (4.70-6.10)
[2024-08-02] MEDS: Morphine 2 MG/ML VIAL SLOW IVP PRN (20:06)
[2024-08-02] MEDS: tiZANidine HCl 4 MG TAB PO PRN (20:19)
[2024-08-02 20:27] LABS: Carbamazepine-Tegretol Less than 0.4 ug/mL (4.0-12.0)
[2024-08-02 20:28] LABS: ALT (SGPT) 25 U/L (Less than 45); AST (SGOT) 57 U/L (11-34); Albumin 3.6 g/dL (3.1-4.5); Alkaline Phosphatase 105 U/L (40-110); Anion Gap 14 mmol/L (10-20); BUN (Urea Nitrogen) 8 mg/dL (8.4-25.7); Bilirubin, Total 1.1 mg/dL (0.3-1.2); Calc. Creatinine Clearance 70 mL/min (70-130); Calcium 8.5 mg/dL (7.8-10.44); Carbon Dioxide 20 mmol/L (22-29); Chloride 105 mmol/L (98-107); Estimated GFR 66; Globulin 3.7 g/dL (2.4-3.5); Glucose 105 mg/dL (70-105); Potassium 3.4 mmol/L (3.5-5.1); Protein, Total 7.3 g/dL (6.0-8.3); Sodium 136 mmol/L (136-145)
[2024-08-02 20:29] LABS: Digoxin Less than 0.19 ng/mL (0.8-2.0)
[2024-08-02] MEDS ORDERED: Electrolyte Replacement Protocol 1 EACH FS PRN (21:42)
[2024-08-02 21:45] LABS: Amphetamine Not Detected (NotDetected); Barbiturates Screen Not Detected (NotDetected); Benzodiazepine Screen Not Detected (NotDetected); Cocaine Metabolite Screen Detected (NotDetected); Methadone Not Detected (NotDetected); Methamphetamine Not Detected (NotDetected); Opiate Screen Detected (NotDetected); Oxycodone Screen Not Detected (NotDetected); Phencyclidine (PCP) Not Detected (NotDetected); THC/Cannabinoid Screen Not Detected (NotDetected); Tricyclic Screen Not Detected (NotDetected)
[2024-08-02] MEDS: Lactated Ringer's 1,000 ML IV SCH (22:19)
[2024-08-02 22:48] LABS: HIV (1/2) Antibody/Antigen NONREACTIVE (NonReactive); HIV 1/2 INDEX 0.05 S/CO (<1.00); Thyroid Stimulating Hormone 0.3001 uIU/mL (0.35-4.94)
[2024-08-02] MEDS: Potassium Chloride 20 MEQ in Premix 1 BAG IVPB SCH (23:54)
[2024-08-03] MEDS: Acetaminophen/Codeine 30-300mg Tablet PO PRN (00:27)
[2024-08-03] MEDS: HYDROcodone/Acetaminophen 5/325 mg Tablet PO PRN (04:00)
[2024-08-03 04:15] LABS: #Basophils Less than 0.03 10x3/uL (0.0-0.2); %Basophils 0.2 % (0.0-1.0); %Eosinophils 0.9 % (0.0-10.0); %Lymphocytes 19.1 % (21.0-51.0); %Monocytes 9.3 % (0.0-10.0); %Neutrophils 70.2 % (42.0-75.0); Hematocrit 41.7 % (42.0-52.0); Hemoglobin 13.1 g/dL (14.0-18.0); Mean Corpuscular HGB CONC 31.4 g/dL (32.0-36.0); Mean Corpuscular Hemoglobin 24.4 pg (27.0-31.0); Mean Corpuscular Volume 77.7 fL (78.0-98.0); Mean Platelet Volume 9.6 fL (7.4-10.4); Platelet Count 287 10x3/uL (130-400); RBC Distribution Width 17.4 % (11.5-14.5); Red Blood Cell (RBC) Count 5.37 mill/uL (4.70-6.10)
[2024-08-03 04:37] LABS: Anion Gap 14 mmol/L (10-20); BUN (Urea Nitrogen) 8 mg/dL (8.4-25.7); Calc. Creatinine Clearance 73 mL/min (70-130); Calcium 8.6 mg/dL (7.8-10.44); Carbon Dioxide 20 mmol/L (22-29); Chloride 107 mmol/L (98-107); Estimated GFR 69; Glucose 94 mg/dL (70-105); Potassium 4.1 mmol/L (3.5-5.1); Sodium 137 mmol/L (136-145)
[2024-08-03] MEDS: Dexamethasone 4 mg/ml Vial SLOW IVP SCH (09:40)
[2024-08-03] MEDS: Pantoprazole 40 MG VIAL IVP SCH (09:44)
[2024-08-03 11:16] LABS: Syphilis Antibody Nonreactive (Nonreactive); Syphilis Antibody Index 0.06 S/CO (<1.00 Non-Reactive)
[2024-08-03] MEDS: Digoxin 0.25 MG TAB PO SCH (13:57)
[2024-08-03] MEDS: Dexamethasone 4 MG TAB PO SCH (13:58)
[2024-08-03] MEDS: Venlafaxine HCl XR 150 MG CAP PO SCH (13:58)
[2024-08-03] MEDS: Losartan 25 MG TAB PO SCH ×2 (14:00→20:46)
[2024-08-03] MEDS: Carvedilol 6.25 MG TAB PO SCH ×2 (14:00→20:46)
[2024-08-03] MEDS: Spironolactone 25 MG TAB PO SCH (14:00)
[2024-08-03] MEDS: Insulin Lispro 100 UNIT/ML 10 ML VIAL SC PRN (15:54)
[2024-08-03] MEDS: hydrALAZINE 20 MG/ML VIAL SLOW IVP PRN (16:53)
[2024-08-03] MEDS ORDERED: Polyethylene Glycol 3350 17 GM Packet PO PRN (17:57)
[2024-08-03] MEDS: Senokot S 8.6-50 MG TAB PO SCH (20:46)
[2024-08-03] MEDS: Terazosin HCl 1 MG CAP PO SCH (20:46)
[2024-08-03] MEDS: Enoxaparin 40 MG (0.4 mL) SYRINGE SC SCH (20:47)
[2024-08-03] MEDS: carBAMazepine XR 200 mg ER.Tablet PO SCH (20:56)
[2024-08-04 05:46] LABS: #Basophils Less than 0.03 10x3/uL (0.0-0.2); #Eosinophils Less than 0.03 10x3/uL (0.0-0.7); %Basophils 0.1 % (0.0-1.0); %Lymphocytes 6.2 % (21.0-51.0); %Neutrophils 90.3 % (42.0-75.0); Hematocrit 37.6 % (42.0-52.0); Hemoglobin 11.9 g/dL (14.0-18.0); Mean Corpuscular HGB CONC 31.6 g/dL (32.0-36.0); Mean Corpuscular Hemoglobin 24.4 pg (27.0-31.0); Mean Corpuscular Volume 77.2 fL (78.0-98.0); Mean Platelet Volume 10.1 fL (7.4-10.4); Platelet Count 289 10x3/uL (130-400); RBC Distribution Width 17.2 % (11.5-14.5); Red Blood Cell (RBC) Count 4.87 mill/uL (4.70-6.10)
[2024-08-04 06:29] LABS: Anion Gap 13 mmol/L (10-20); BUN (Urea Nitrogen) 19 mg/dL (8.4-25.7); Calc. Creatinine Clearance 73 mL/min (70-130); Calcium 8.9 mg/dL (7.8-10.44); Carbon Dioxide 20 mmol/L (22-29); Chloride 107 mmol/L (98-107); Estimated GFR 69; Glucose 135 mg/dL (70-105); Potassium 4.1 mmol/L (3.5-5.1); Sodium 136 mmol/L (136-145)
[2024-08-04] MEDS: TETANUS, DIPHTHERIA TOX,ADULT (TDVAX) 0.5 ML VIAL IM ONE (08:31)
[2024-08-04] MEDS: Empagliflozin 10 MG TAB PO SCH (08:33)
[2024-08-05 05:25] LABS: #Basophils Less than 0.03 10x3/uL (0.0-0.2); #Eosinophils Less than 0.03 10x3/uL (0.0-0.7); %Basophils 0.1 % (0.0-1.0); %Lymphocytes 4.9 % (21.0-51.0); %Neutrophils 88.6 % (42.0-75.0); Hematocrit 33.6 % (42.0-52.0); Hemoglobin 10.9 g/dL (14.0-18.0); Mean Corpuscular HGB CONC 32.4 g/dL (32.0-36.0); Mean Corpuscular Volume 77.1 fL (78.0-98.0); Mean Platelet Volume 10.7 fL (7.4-10.4); Platelet Count 294 10x3/uL (130-400); RBC Distribution Width 17.2 % (11.5-14.5); Red Blood Cell (RBC) Count 4.36 mill/uL (4.70-6.10)
[2024-08-05 05:44] LABS: Anion Gap 12 mmol/L (10-20); BUN (Urea Nitrogen) 22 mg/dL (8.4-25.7); Calc. Creatinine Clearance 75 mL/min (70-130); Calcium 8.5 mg/dL (7.8-10.44); Carbon Dioxide 22 mmol/L (22-29); Chloride 109 mmol/L (98-107); Estimated GFR 71; Glucose 127 mg/dL (70-105); Potassium 4.2 mmol/L (3.5-5.1); Sodium 139 mmol/L (136-145)
[2024-08-05] MEDS: Pantoprazole 40 MG DR.TAB PO SCH (08:28)
[2024-08-06 05:33] VITALS: BMI 25.1
[2024-08-06 05:39] LABS: #Basophils Less than 0.03 10x3/uL (0.0-0.2); #Eosinophils Less than 0.03 10x3/uL (0.0-0.7); %Basophils 0.1 % (0.0-1.0); %Lymphocytes 6.6 % (21.0-51.0); %Monocytes 5.1 % (0.0-10.0); %Neutrophils 87.5 % (42.0-75.0); Hematocrit 34.2 % (42.0-52.0); Hemoglobin 11.1 g/dL (14.0-18.0); Mean Corpuscular HGB CONC 32.5 g/dL (32.0-36.0); Mean Corpuscular Hemoglobin 25.1 pg (27.0-31.0); Mean Corpuscular Volume 77.4 fL (78.0-98.0); Mean Platelet Volume 10.8 fL (7.4-10.4); Platelet Count 287 10x3/uL (130-400); RBC Distribution Width 17.3 % (11.5-14.5); Red Blood Cell (RBC) Count 4.42 mill/uL (4.70-6.10)
[2024-08-06 05:53] LABS: Anion Gap 11 mmol/L (10-20); BUN (Urea Nitrogen) 21 mg/dL (8.4-25.7); Calc. Creatinine Clearance 76 mL/min (70-130); Calcium 8.3 mg/dL (7.8-10.44); Carbon Dioxide 24 mmol/L (22-29); Chloride 106 mmol/L (98-107); Estimated GFR 70; Glucose 132 mg/dL (70-105); Sodium 137 mmol/L (136-145)
[2024-08-06] MEDS: hydrALAZINE 20 MG/ML VIAL SLOW IVP PRN (13:00)
[2024-08-06] MEDS: Terazosin HCl 1 MG CAP PO SCH (21:39)
[2024-08-07 06:30] LABS: #Basophils Less than 0.03 10x3/uL (0.0-0.2); #Eosinophils Less than 0.03 10x3/uL (0.0-0.7); %Basophils 0.1 % (0.0-1.0); %Lymphocytes 9.9 % (21.0-51.0); %Monocytes 6.1 % (0.0-10.0); %Neutrophils 83.2 % (42.0-75.0); Hematocrit 35.2 % (42.0-52.0); Mean Corpuscular HGB CONC 31.3 g/dL (32.0-36.0); Mean Corpuscular Hemoglobin 24.6 pg (27.0-31.0); Mean Corpuscular Volume 78.7 fL (78.0-98.0); Mean Platelet Volume 10.9 fL (7.4-10.4); Platelet Count 308 10x3/uL (130-400); RBC Distribution Width 17.5 % (11.5-14.5); Red Blood Cell (RBC) Count 4.47 mill/uL (4.70-6.10)
[2024-08-07 06:43] LABS: Anion Gap 12 mmol/L (10-20); BUN (Urea Nitrogen) 20 mg/dL (8.4-25.7); Calc. Creatinine Clearance 83 mL/min (70-130); Calcium 8.1 mg/dL (7.8-10.44); Carbon Dioxide 24 mmol/L (22-29); Chloride 106 mmol/L (98-107); Estimated GFR 77; Glucose 126 mg/dL (70-105); Sodium 138 mmol/L (136-145)
[2024-08-07] MEDS: hydrALAZINE 25 MG TAB PO SCH ×3 (11:25→14:33)
[2024-08-08 05:22] LABS: #Basophils Less than 0.03 10x3/uL (0.0-0.2); #Eosinophils Less than 0.03 10x3/uL (0.0-0.7); %Basophils 0.1 % (0.0-1.0); %Eosinophils 0.1 % (0.0-10.0); %Lymphocytes 10.9 % (21.0-51.0); %Monocytes 7.5 % (0.0-10.0); %Neutrophils 80.3 % (42.0-75.0); Hemoglobin 11.8 g/dL (14.0-18.0); Mean Corpuscular HGB CONC 31.9 g/dL (32.0-36.0); Mean Corpuscular Hemoglobin 24.8 pg (27.0-31.0); Mean Corpuscular Volume 77.9 fL (78.0-98.0); Mean Platelet Volume 10.1 fL (7.4-10.4); Platelet Count 295 10x3/uL (130-400); RBC Distribution Width 17.2 % (11.5-14.5); Red Blood Cell (RBC) Count 4.75 mill/uL (4.70-6.10)
[2024-08-08 05:38] LABS: Anion Gap 11 mmol/L (10-20); BUN (Urea Nitrogen) 26 mg/dL (8.4-25.7); Calc. Creatinine Clearance 90 mL/min (70-130); Carbon Dioxide 24 mmol/L (22-29); Chloride 109 mmol/L (98-107); Estimated GFR 82; Glucose 117 mg/dL (70-105); Potassium 4.4 mmol/L (3.5-5.1); Sodium 140 mmol/L (136-145)
[2024-08-08] MEDS: Dexamethasone 1 MG TAB PO SCH ×2 (08:06→11:28)
[2024-08-08] MEDS: Lactulose 20 GM (30 mL) UDCUP PO SCH (08:07)
[2024-08-08 11:31] VITALS: TEMP 98.1
[2024-08-08] MEDS: hydrALAZINE 25 MG TAB PO SCH (13:38)
[2024-08-08] MEDS: cloNIDine 0.1 MG TAB PO SCH (16:23)
[2024-08-08 17:17] VITALS: BP 163/107
[2024-08-09] MEDS ORDERED: Dexamethasone 1 MG TAB PO SCH (06:00)
[2024-08-10] MEDS ORDERED: Dexamethasone 1 MG TAB PO SCH (06:00)
== END 2024-08-08 18:45 | disposition home or self-care (01) | DRG 551 ==
LOC: ERS 11:47 → CCU 14:26 → SURG A 08-03 17:23
PROVIDERS: ADMIT Surgery; ATTEND Surgery
PROC: XX20X89 Monitoring of Brain Electrical Activity, Computer-aided Detection and Notification, New Technology Group 9 (ICD-10-PCS; principal; 2024-08-02)
DX: S22.089A Unspecified fracture of T11-T12 vertebra, initial encounter for closed fracture (principal); G93.41 Metabolic encephalopathy; I50.42 Chronic combined systolic (congestive) and diastolic (congestive) heart failure; I47.20 Ventricular tachycardia, unspecified; I16.1 Hypertensive emergency; I42.7 Cardiomyopathy due to drug and external agent; S22.079A Unspecified fracture of T9-T10 vertebra, initial encounter for closed fracture; I11.0 Hypertensive heart disease with heart failure; I25.10 Atherosclerotic heart disease of native coronary artery without angina pectoris; F14.90 Cocaine use, unspecified, uncomplicated; F17.200 Nicotine dependence, unspecified, uncomplicated; F31.9 Bipolar disorder, unspecified; G89.29 Other chronic pain; W11.XXXA Fall on and from ladder, initial encounter; Z95.0 Presence of cardiac pacemaker; Z98.890 Other specified postprocedural states; Z79.82 Long term (current) use of aspirin; Z79.899 Other long term (current) drug therapy; T40.5X5A Adverse effect of cocaine, initial encounter; R33.9 Retention of urine, unspecified
CPT/HCPCS: 36415; 36416; 51702; 70450; 70498; 71045; 72146; 80048; 80156; 80162; 80306; 80307; 82140; 82550; 84443; 85025; 86780; 87389; 95819; 96361; 96374; G0390; J0360; J1100; J1650; J1815; J2272; J2310; J2470; J3480; J7050; J7120; J8540; Q9967